=== PATIENT | male | born 1935 | race Caucasian/White ===

== ENCOUNTER 2019-06-30 19:55 | Emergency (ER) | payer OTHER, MEDICARE, MEDICAID ==
[2019-06-30] MEDS ORDERED: Lidocaine 1% 10 ML MDV INJECT ONE (20:00)
[2019-06-30 20:01] VITALS: BP 136/81; PULSE 62
--- NOTE | 2019-06-30 20:05 | EDM.PDOC ---
ED HPI GENERAL MEDICAL PROBLEM - General Chief Complaint: Trauma Stated Complaint: [facility] Time Seen by Provider: 06/30/19 20:00 Source of Information: Reports: Patient, EMS History Limitations: Reports: No Limitations - History of Present Illness INITIAL COMMENTS - FREE TEXT/NARRATIVE: 83-year-old male transferred to the hospital after falling from a prior left sheet at [facility] [place]. Landed hard on the concrete floor on his left side. Complains of pain left lateral neck. Complains of pain left collarbone left proximal humerus and shoulder area. Pain left hand particularly the fifth finger with an avulsion injury to the middle phalanx area. Denies pain in his hip or back. No pain in his ribs. He doesn't believe that he hit his head. No reported loss of consciousness. Onset: Today Onset Date: 06/30/19 Onset Time: 19:25 Duration: Minutes: Location: Reports: Neck, Upper Extremity, Left (Left shoulder distal clavicle area. Injury to the left hand with an avulsion injury to the fifth finger.) Quality: Reports: Ache, Other Severity: Moderate Improves with: Reports: Rest Worsens with: Reports: Movement Context: Reports: Trauma (Fell from a Cma lift while being transported at [facility] Denies: Activity, Exercise, Lifting, Sick Contact, Other Associated Symptoms: Reports: Cough, Loss of Appetite, Malaise, Weakness, Other. Denies: Confusion, Chest Pain, cough w sputum, Diaphoresis ( Nonproductive), Fever/Chills, Headaches, Nausea/Vomiting (Chronically), Rash, Seizure, Shortness of Breath, Syncope Treatments MARKETING PROGRAM MANAGER: Reports: Other (see below) (None.) Left Shoulder Pain Score (Numeric/FACES): 5 - Related Data Allergies Allergy/AdvReac Type Severity Reaction Status Date / Time egg AdvReac Nausea and Verified 06/30/19 20:02 Vomiting Home Meds: Home Meds Calcium Carbonate/Vitamin D3 [Calcium 600 + Vit D Tablet] 1 tab PO DAILY [History] Finasteride [Proscar] 5 mg PO QPM 02/19/15 [History] Gluc 2KCl/Chondr/Bright Hy/Hy Ac [Glucosamine & Chondroitin Cap] 1 cap PO DAILY [History] Latanoprost [Xalatan 0.005% Ophth Soln] 1 drop OP BEDTIME 02/19/15 [History] Lutein/Minerals/Vit A,C & E [Ocuvite] 1 tab PO DAILY 02/19/15 [History] Multivit-Min/FA/Lycopene/Lut [Centrum Silver Tablet] 1 tab PO DAILY 02/19/15 [ History] Omeprazole 40 mg PO DAILY 02/19/15 [History] Donepezil [Aricept] 10 mg PO BEDTIME 06/30/19 [History] Hydrochlorothiazide [Microzide] 12.5 mg PO DAILY 06/30/19 [History] Memantine [Namenda] 10 mg PO BID 06/30/19 [History] Potassium Chloride 10 meq PO BID 06/30/19 [History] Past Medical History Genitourinary History: Reports: BPH Other Genitourinary History: Prostate enlarged with possible cancer per Dr Mccormack from [place] Other Neuro History: states the MD has mentioned possible start of dementia Other Dermatologic History: Currently admitted with cellulitis to R ankle - Past Surgical History Other Cardiovascular Surgeries/Procedures: 5 coronary bypass in 1999 Social & Family History - Living Situation & Occupation Living situation: Reports: , Extended Care Facility (Currently residing in [facility].) Occupation: Retired Review of Systems - Review of Systems Review Of Systems: See Below Constitutional: Reports: Weakness. Denies: Chills, Diaphoresis, Fever Eyes: Reports: Decreased Acuity (Due to glaucoma.), Glasses. Denies: Blindness Ears: Reports: No Symptoms Nose: Reports: No Symptoms Mouth/Throat: Reports: No Symptoms Respiratory: Reports: Shortness of Breath. Denies: Wheezing, Pleuritic Chest Pain, Cough, Sputum, Hemoptysis Cardiovascular: Reports: Other (Previous open heart surgery.). Denies: Chest Pain, Edema, Irregular Heart Rate GI/Abdominal: Reports: Other (Some problems with constipation.) Genitourinary: Reports: Other (Urinary frequency due to enlarged prostate. Unclear for sure whether or not he has prostate cancer.) Musculoskeletal: Reports: Neck Pain (Currently having pain in his left shoulder distal clavicle and proximal humerus area pain left lateral neck pain left fifth finger.), Back Pain, Other Skin: Reports: Other (Suffered an avulsion injury with bleeding from the ulnar aspect of the left fifth finger. This is over the middle phalanx) Neurological: Reports: Difficulty Walking, Weakness. Denies: Confusion, Dizziness, Headache, Numbness, Syncope, Tingling, Tremors, Trouble Speaking (No longer walks.), Change in Speech Psychiatric: Reports: No Symptoms ED EXAM, GENERAL - Physical Exam Exam: See Below Exam Limited By: No Limitations General Appearance: Alert, WD/WN, Mild Distress, Other (Temperature is not corrected is labeled as 35.4. Pulse is 62 respiratory distress 20 O2 sats 95% on room air. BP 136/81.) Eye Exam: Bilateral Eye: Normal Inspection Ear Exam: Left Ear: Auricle Normal, Canal Normal Nose: Normal Inspection Throat/Mouth: Normal Inspection, Normal Lips, Normal Oropharynx, Other (No dental injury or injury to his tongue.) Head: Atraumatic, Normocephalic, Other (No overt signs of head or facial trauma or swelling.) Neck: Limited Range of Motion, Tender Lateral (Tender both sides of his cervical spine little worse on the left without any overlying paraspinal muscle spasm.). No: Full Range of Motion, Carotid Bruit, Lymphadenopathy (L), Lymphadenopathy (R), Thyromegaly Respiratory/Chest: No Respiratory Distress ( This is most notable from C5-C7 on the left side.), Lungs Clear, Normal Breath Sounds, No Accessory Muscle Use, Other (He is able to take a full deep breath without any pain in his back or chest. Compression of his ribs gave him no increased pain.) Cardiovascular: Regular Rate, Rhythm, No Edema, No Gallop, No Murmur, No Rub, Other. No: Normal Peripheral Pulses (Has a well-healed midline sternotomy incision.) Peripheral Pulses: 1+: Posterior Tibial (L), Posterior Tibial (R), Dorsalis Pedis (L), Dorsalis Pedis (R) GI/Abdominal: Normal Bowel Sounds, Soft, Non-Tender, No Organomegaly, No Distention, No Mass, Pelvis Stable Back Exam: Other (On his side before meals contusions or abrasions to the back. No complaints of pain on palpation of the thoracic or lumbar spine.) Extremities: Other (Complains of pain on palpation of his mid and distal left clavicle. No pain over the acromioclavicular joint. No obvious swelling or deformity of the proximal humerus. He does have pronated full pronation supination at the elbow. He has an avulsion injury of approximately 1.4 cm to the middle phalanx of the ulnar aspect of his left fifth finger. It is actively bleeding.) Neurological: Alert, Oriented, CN II-XII Intact, Normal Cognition Psychiatric: Normal Affect, Normal Mood Skin Exam: Warm, Dry, Normal Color, No Rash, Other (Avulsion type injury in an oval-shaped over the middle phalanx of his left fifth finger.) Course - Vital Signs Last Recorded V/S: Last Vital Signs Temp 35.4 C 06/30/19 20:00 Pulse 62 06/30/19 20:00 Resp 20 06/30/19 20:00 BP 136/81 06/30/19 20:00 Pulse Ox 95 06/30/19 20:00 - Orders/Labs/Meds Orders: Active Orders 24 hr Category Date Time Status Clavicle Lt [CR] Stat Exams 06/30/19 20:02 Taken Hand Comp Min 3V Lt [CR] Stat Exams 06/30/19 20:03 Taken Humerus Lt [CR] Stat Exams 06/30/19 20:03 Taken Pelvis 1V or 2V [CR] Stat Exams 06/30/19 20:12 Taken Shoulder wo Cont Lt [CT] Stat Exams 06/30/19 20:56 Taken Meds: Medications Discontinued Medications Generic Name Dose Route Start Last Admin Trade Name Freq PRN Reason Stop Dose Admin Lidocaine HCl 10 ml 06/30/19 20:00 06/30/19 21:28 Xylocaine 1% INJECT 06/30/19 20:01 Not Given ONETIME ONE - Radiology Interpretation Free Text/Narrative:: 83-year-old gentleman who resides at [facility] He landed hard on a tile concrete floor. Chief complaint is pain in the left clavicle and left neck area and left upper arm. No pain in the head or neck. No pain in his head but he does remember if he hit the floor with his head or not. There are no overt signs of head trauma or facial trauma. Pain left lateral neck on examination. No swelling. Pain well localized to the clavicle particular distally. He suffered an avulsion type injury to the left ulnar fifth finger which will have to be sutured I presume. He has very limited mobility of his lower extremities with flexion contractures at the knees and hips. Did not allow me a very good assessment of his hip. I will have been x-ray of his pelvis performed as well as x-ray of his left clavicle left humerus left hand. CT head and neck to be done - Re-Assessments/Exams Free Text/Narrative Re-Assessment/Exam: 06/30/19 20:59 patient has returned from x-ray suite. CT head reveals advanced degenerative changes with encephalomalacia at both posterior and anterior horns of the lateral ventricles which are moderately dilated. Diffuse demyelination changes are appreciated both basal ganglia. Cerebral cortex is showing moderate atrophy. Actions or intracranial bleeding or mass effect identified. CT cervical spine reveals no fractures. There is advanced degenerative arthritic changes at multiple uncovertebral joints starting at C3-C7. The body of C6 and C7 vertebrae are severely arthritic with vacuum phenomenon of the disc spaces. X -rays of the left clavicle show no fractures. X-rays of the left humerus show lytic lesions in the proximal humerus but no fractures identified. There is a question of fracture in the body of scapula but his bones are very osteopenic x- ray of the pelvis reveals no obvious fractures or lytic lesions in the pelvis itself. Query lytic lesions in the upper femur bilaterally. No femoral neck fractures or hip fractures identified. Plan I'm going to CT his left scapula to rule out fracture in this area. We inspected his wound on the left fifth finger. It is a flap avulsion type injury. The skin is so thin it would not hold sutures. He'll be cleansed and topical antibiotic and a Band-Aid applied. 06/30/19 21:38 CT of his left shoulder reveals a comminuted fracture of the proximal aspect of the clavicle near the sternoclavicular joint. Review of the clavicular films this was not evident as is overlying the spine. There is no fracture within the humerus or the scapula or the distal clavicle. Treatment will be sling and swath for the next 3 weeks. Tylenol for pain 650 mg every 4-6 hours. He will be sent back to [facility]. He will require follow-up with his personal care physician in 3 weeks . The sling and swath should be worn for the most part for the next 3 weeks but taken off after this to prevent frozen shoulder from occurring. Suggest Tylenol 650 mg every 4-6 hours as needed for pain relief. Departure - Departure Time of Disposition: 21:40 Disposition: DC/Tfer to [facility] Condition: Fair Clinical Impression: Fracture of clavicle Qualifiers: Encounter type: initial encounter Clavicle location: sternal end Fracture type : closed Fracture alignment: nondisplaced Laterality: left Qualified Code(s): S42.018A - Nondisplaced fracture of sternal end of left clavicle, initial encounter for closed fracture - Discharge Information *PRESCRIPTION DRUG MONITORING PROGRAM REVIEWED*: Not Applicable *COPY OF PRESCRIPTION DRUG MONITORING REPORT IN PATIENT KATIE: Not Applicable Instructions: Clavicle Fracture, [id number] Referrals: Wellington Fernández MD [Primary Care Provider] - Forms: ED Department Discharge Additional Instructions: Evaluation the emergency room tonight in regards to injuries sustained from a fall from a Cam lift tonight. Injuries primarily to the left shoulder and neck region. Examination revealed marked tenderness on palpation along the clavicle without any obvious deformity clinically. No obvious pain over the acromioclavicular joint and no obvious abnormalities of the proximal humerus. There is a night flap laceration to the ulnar aspect of the left fifth finger. Questionable contusion to the left hip. CT of the head reveals marked degenerative changes with marked atrophy compatible with age related degenerative changes but no intracranial bleeding. CT cervical spine reveals no fractures but advanced degenerative arthritic changes at multiple levels. X- rays of the left humerus reveal no fractures. Suggest a few lytic lesions in the bone possibly due to underlying prostate cancer. There is a questionable abnormality within the scapula as well. X-rays of the clavicle initially did not reveal any fractures particular of the midshaft or distal end of the collarbone. X-rays of the pelvis reveals no fractures of the hips or the pelvic bones. Expect significant pain in the left shoulder CT of the left shoulder was done. It reveals a comminuted fracture of the sternal and of the collarbone that was not able to be seen on the plain films. Treatment of this is sling and swath for the next 3 weeks to allow the clavicle to heal. He cannot stay in a sling longer than 3 weeks to prevent frozen shoulder on the left side from occurring. Suggest time 06 50 mg every 6 hours needed for relief of pain. Flap laceration left hand which also was x-rayed and did not reveal any fractures was cleansed and then at topical antibiotic placed and a Band-Aid. Skin is warm very thinly and will not withstand sutures. This should be cleansed daily with soap and water and topical antibiotic such as bacitracin or Polysporin once daily and a Band-Aid until healed. Suggest follow-up with his personal care physician in 3 weeks time in regards to his fractured sternal end of the collarbone. - My Orders Last 24 Hours: My Active Orders 06/30/19 20:02 Clavicle Lt [CR] Stat 06/30/19 20:03 Hand Comp Min 3V Lt [CR] Stat Humerus Lt [CR] Stat 06/30/19 20:12 Pelvis 1V or 2V [CR] Stat 06/30/19 20:56 Shoulder wo Cont Lt [CT] Stat - Assessment/Plan Last 24 Hours: My Active Orders 06/30/19 20:02 Clavicle Lt [CR] Stat 06/30/19 20:03 Hand Comp Min 3V Lt [CR] Stat Humerus Lt [CR] Stat 06/30/19 20:12 Pelvis 1V or 2V [CR] Stat 06/30/19 20:56 Shoulder wo Cont Lt [CT] Stat
--- NOTE | 2019-06-30 21:08 | CT ---
CT cervical spine Technique: Multiple axial sections were obtained from above C1 inferiorly to the bottom of T2. Reconstructed sagittal and coronal images were reviewed. Findings: Diffuse disc space narrowing is seen throughout the cervical spine most prominent at C5-6 and C6-7. Minimal spondylolisthesis is noted at C4-5 due to degenerative apophyseal change. Degenerative apophyseal change is also seen diffusely throughout the cervical spine. Mild right sided neural foraminal stenosis is noted at C2-3. Severe left-sided neural foraminal stenosis noted at C3-4. Moderate to severe right-sided neural foraminal stenosis noted at C4-5 with mild left-sided neural foraminal stenosis at C4-5. Moderate to severe bilateral neural foraminal stenosis is noted C5-6. Mild left-sided neural foraminal stenosis is noted at C6-7. No fracture is appreciated. Osteopenia is present. Impression: 1. Diffuse degenerative change. 2. Nothing acute is appreciated on CT study of the cervical spine. Diagnostic code #2
--- NOTE | 2019-06-30 21:13 | CT ---
Head CT Technique: Multiple axial sections through the brain were obtained. Intravenous contrast was not utilized. Comparison: No prior intracranial imaging. Ventricles along with basal cisterns and sulci over the convexities appear markedly prominent. Diminished density is noted within the periventricular white matter compatible with small vessel ischemic demyelination change. No other abnormal parenchymal densities are seen. No evidence of intracranial hemorrhage. No midline shift or mass effect is seen. Atherosclerotic calcification is seen within the carotid siphon. Mastoid sinuses are clear. Mild mucosal thickening is seen within the inferior right maxillary sinus with minimal mucosal thickening seen within the ethmoid and frontal sinuses. No acute calvarial abnormality is seen. Impression: 1. Senescent change as noted above. 2. Findings of mild chronic sinusitis within the paranasal sinuses. 3. Nothing acute is appreciated. Diagnostic code #2
[2019-06-30] MEDS ORDERED: Acetaminophen 325 MG Tab PO ONE (21:39)
--- NOTE | 2019-07-01 07:34 | CR ---
Left hand: Three views of the left hand were obtained. Comparison: No previous and study. Severe degenerative change is noted within the CMC joint of the thumb. Joint space narrowing is noted within the MCP joints of the 2nd and 3rd fingers as well as 5th finger. Bony structures are osteoporotic. Deformity from old healed fracture is seen within the proximal 5th metacarpal. Joint space narrowing is noted within the radiocarpal joint. No acute fracture or dislocation is seen. Impression: 1. Findings as noted above. Nothing acute is appreciated on the left hand exam. Diagnostic code #2
--- NOTE | 2019-07-01 07:34 | CR ---
Left humerus: AP and lateral views of the left humerus were obtained. Comparison: No prior humerus exam. Bony structures are osteopenic. No fracture or other bony abnormality is seen. Impression: 1. Osteopenia. Nothing acute is seen on the left humerus study. Diagnostic code #2
--- NOTE | 2019-07-01 07:34 | CR ---
Left clavicle: Two views of the left clavicle were obtained. Comparison: No previous clavicle study. Minimal inferior spurring is noted off the distal clavicle at the acromioclavicular joint. Bony structures are osteopenic. Proximal clavicle appears to be fractured. Other portions of the clavicle are unremarkable. No additional abnormality is seen. Impression: 1. Findings suspicious for proximal clavicle fracture. 2. Other findings believed to be incidental. Diagnostic code #3
--- NOTE | 2019-07-01 07:34 | CR ---
Pelvis: AP view of the pelvis was obtained. Comparison: No prior pelvis study. Joint spaces within both hips are maintained. Sacroiliac joints are within normal limits. Bony structures are osteopenic. Mild vascular calcification is seen. Impression: 1. Osteopenia. Vascular calcification. 2. Nothing acute is appreciated on AP pelvis exam. Diagnostic code #2
--- NOTE | 2019-07-01 08:22 | CT ---
CT left shoulder Technique: Multiple axial sections were obtained through the left shoulder. Reconstructed coronal and sagittal images were obtained. Findings: Mildly comminuted and mildly displaced proximal clavicle fracture is present. Fracture is also noted in 2 places within the body of the scapula. Scapular fracture shows minimal displacement. Osteopenia is present. Humeral head and proximal humeral shaft appear unremarkable. Visualized left upper ribs appear within normal limits. Impression: 1. Mildly comminuted and mildly displaced proximal left clavicle fracture. 2. Fracture within 2 places involving the body of the scapula. 3. Osteopenia. Diagnostic code #3 MTDD
== END 2019-06-30 22:07 ==
LOC: JD.ED 19:55
DX: S42.018A Nondisplaced fracture of sternal end of left clavicle, initial encounter for closed fracture (principal); Z91.012 Allergy to eggs; W18.30XA Fall on same level, unspecified, initial encounter
CPT/HCPCS: 70450; 72125; 72170; 73000; 73060; 73130; 73200; 99285; A9270